=== PATIENT | male | born 1955 | race African-American/Black ===

== ENCOUNTER 2023-01-02 07:44 | Emergency (ER) | payer OTHER ==
[~2023-01-02] VITALS: Ht 170.2 cm; Wt 77.1 kg
[2023-01-02 07:55] VITALS: BP 124/88; PULSE 115; RESP 20; TEMP 99.3; O2SAT 96
[2023-01-02] MEDS ORDERED: IBUPROFEN 600 MG TAB PO ONE (08:15)
[2023-01-02] MEDS ORDERED: ACETAMINOPHEN EXTRA STRENGTH 500 MG TAB PO ONE (08:15)
[2023-01-02 08:39] LABS: BASOPHILS % (AUTO) 0.1 % (0.0-2.0); EOSINOPHILS % (AUTO) 0.2 % (0.0-4.0); HEMATOCRIT 48.5 % (36-52); HEMOGLOBIN 16.1 g/dL (12.0-18.0); LYMPHOCYTES # (AUTO) 0.8 K/uL (2.0-11.5); LYMPHOCYTES % (AUTO) 5.4 % (20.5-51.1); MEAN CORPUSCULAR HEMOGLOBIN 29 pg (27-31); MEAN CORPUSCULAR HGB CONC 33 g/dL (33-37); MEAN CORPUSCULAR VOLUME 86.6 fL (80-94); MONOCYTES # (AUTO) 1.5 K/uL (0.8-1.0); MONOCYTES % (AUTO) 10.6 % (1.7-9.3); NEUTROPHILS % (AUTO) 83.7 % (42.2-75.2); PLATELET COUNT (AUTO) 289 K/uL (140-450); RED CELL DISTRIBUTION WIDTH 15.2 % (11.6-13.7); WHITE BLOOD COUNT (AUTO) 14.3 K/uL (4.8-10.8)
[2023-01-02 09:06] LABS: ALANINE AMINOTRANSFERASE 22 U/L (12-78); ALBUMIN 3.5 g/dL (3.4-5.0); ALKALINE PHOSPHATASE 73 U/L (50-136); ANION GAP 12.2 (8-16); ASPARTATE AMINOTRANSFERASE 22 U/L (15-37); CALCIUM 8.3 mg/dL (8.5-10.1); CARBON DIOXIDE 24.2 mmol/L (21-32); CHLORIDE 103 mmol/L (98-107); CREATININE 1.2 mg/dL (0.6-1.3); GFR ARICAN-AMERICAN 78 mL/min (>90); GFR NON ARICAN-AMERICAN 64 mL/min (>90); GLUCOSE 153 mg/dL (74-106); LIPASE 26 U/L (16-77); POTASSIUM 3.4 mmol/L (3.5-5.1); SODIUM SERUM 136 mmol/L (136-145); TOTAL BILIRUBIN 0.8 mg/dL (0.0-1.0); TOTAL PROTEIN, SERUM 7.5 g/dL (6.4-8.2); UREA NITROGEN, BLOOD 14 mg/dL (7-18)
[2023-01-02 09:39] LABS: FLU A ANTIGEN negative (NEGATIVE); FLU B ANTIGEN negative (NEGATIVE)
[2023-01-02] MEDS ORDERED: ACET-10509 PO (10:20)
[2023-01-02] MEDS ORDERED: AMOX-1230 PO (10:20)
[2023-01-02] MEDS ORDERED: BENZ200C4 PO (10:20)
[2023-01-02] MEDS ORDERED: AZIT250T3 PO (10:20)
[2023-01-02 10:53] VITALS: BP 116/71; PULSE 93; RESP 16; TEMP 100.3; O2SAT 97
== END 2023-01-02 10:53 | disposition home or self-care (01) ==
LOC: MED 07:44
DX: J18.9 Pneumonia, unspecified organism (principal); Z20.822 Contact with and (suspected) exposure to COVID-19; K21.9 Gastro-esophageal reflux disease without esophagitis; I10 Essential (primary) hypertension; Z79.899 Other long term (current) drug therapy
CPT/HCPCS: 36415; 71045; 80053; 83690; 84484; 85025; 93005; 99285

== ENCOUNTER 2023-01-07 08:23 | Emergency (ER) | payer OTHER ==
[~2023-01-07] VITALS: Ht 165.1 cm; Wt 81.6 kg
[~2023-01-07 08:23] MED LIST: ACET-10509 PO; AMOX-1230 PO; AZIT250T3 PO; BENZ200C4 PO
[2023-01-07 08:39] VITALS: BP 138/84; PULSE 87; RESP 16; TEMP 97.9; O2SAT 96
[2023-01-07 09:04] VITALS: BP 138/84; PULSE 87; RESP 16; TEMP 97.9; O2SAT 96
== END 2023-01-07 09:03 | disposition home or self-care (01) ==
LOC: MED 08:23
DX: Z00.00 Encounter for general adult medical examination without abnormal findings (principal); I10 Essential (primary) hypertension; K21.9 Gastro-esophageal reflux disease without esophagitis; Z87.01 Personal history of pneumonia (recurrent); Z79.899 Other long term (current) drug therapy; Z79.2 Long term (current) use of antibiotics
CPT/HCPCS: 99281